=== PATIENT | female | born 1955 | race Caucasian/White ===

== ENCOUNTER → 2016-11-16 | Outpatient (CLI) | payer OTHER | LOC: FLAB 12:41 | PROVIDERS: ATTEND Family Medicine | DX: K76.0 Fatty (change of) liver, not elsewhere classified (principal); K76.89 Other specified diseases of liver ==

== ENCOUNTER → 2017-02-02 | Outpatient (CLI) | payer OTHER | LOC: FIMAGING 09:53 | PROVIDERS: ATTEND Family Medicine | DX: Z12.31 Encounter for screening mammogram for malignant neoplasm of breast (principal) | CPT/HCPCS: G0202 ==

== ENCOUNTER → 2017-03-09 | Outpatient (CLI) | payer OTHER | LOC: FIMAGING 10:32 | PROVIDERS: ATTEND Family Medicine | DX: R06.02 Shortness of breath (principal); R09.89 Other specified symptoms and signs involving the circulatory and respiratory systems; K21.9 Gastro-esophageal reflux disease without esophagitis; E11.9 Type 2 diabetes mellitus without complications ==